=== PATIENT | male | born 1990 | race Caucasian/White ===

== ENCOUNTER 2023-07-07 17:10 | Emergency (ER) | payer BC ==
[~2023-07-07] VITALS: Ht 185.4 cm; Wt 114.0 kg
[2023-07-07 17:33] VITALS: BP 156/95; PULSE 95; RESP 18; TEMP 98; O2SAT 97
[2023-07-07] MEDS ORDERED: TRIA15CR61 TOP (18:50)
[2023-07-07] MEDS ORDERED: CEPH-585 PO (18:50)
[2023-07-07] MEDS: diphenhydrAMINE 50 mg/ml inj IM ONE (19:03)
[2023-07-07] MEDS: dexamethasone sod phosphate 10mg/ml inj IM STA (19:03)
== END 2023-07-07 19:38 | disposition home or self-care (01) ==
LOC: ER 17:11
DX: L23.9 Allergic contact dermatitis, unspecified cause (principal); Z88.0 Allergy status to penicillin
CPT/HCPCS: 96372; 99284; J1100; J1200